=== PATIENT | male | born 1950 | race Caucasian/White ===

== ENCOUNTER 2018-02-22 10:00 | Day surgery (SDC) | payer MEDICARE, MEDICAID ==
[~2018-02-22] VITALS: Ht 188 cm; Wt 90.4 kg
[~2018-02-22 10:00] MED LIST: ASPI-1265 PO; FENO160T PO; HYT1T PO; LABE200T28 PO; LOSA25TA96 PO; MINO2.5T19 PO
[2018-02-22] MEDS ORDERED: normal saline 1000ml 1,000 ML IV SCH (11:15)
[2018-02-22 11:28] LABS: BASOPHILS % (AUTO) 0.6 % (0-1); EOSINOPHILS # (AUTO) 0.1 X10'3 (0-0.9); EOSINOPHILS % (AUTO) 1.7 % (0-6); LYMPHOCYTES # (AUTO) 1.8 X10'3 (1.1-4.8); LYMPHOCYTES % (AUTO) 25.2 % (21-51); MEAN CORPUSCULAR HEMOGLOBIN 32.6 PG (27.0-31.0); MEAN CORPUSCULAR HGB CONC 34.5 % (33.0-36.5); MEAN CORPUSCULAR VOLUME 94.5 FL (78-98); MEAN PLATELET VOLUME 7.1 FL (7.4-10.4); MONOCYTES # (AUTO) 0.5 X10'3 (0-0.9); MONOCYTES % (AUTO) 7.1 % (2-12); NEUTROPHILS # (AUTO) 4.8 X10'3 (1.8-7.7); NEUTROPHILS % (AUTO) 65.4 % (42-75); PRE OP HEMATOCRIT 32.2 % (42.0-52.0); PRE OP HEMOGLOBIN 11.1 g/dL (14.0-17.9); PRE OP PLATELET COUNT 156 X10'3 (140-440); RED BLOOD COUNT 3.41 X10'6 (4.70-6.10); RED CELL DISTRIBUTION WIDTH 13.2 % (11.5-14.5)
[2018-02-22 11:40] LABS: ALBUMIN 3.7 G/DL (3.4-5.0); ANION GAP 8 (8-16); BLOOD UREA NITROGEN 19 MG/DL (7-18); BUN/CREATININE RATIO 4.2 (5.4-32.0); CALCIUM 8.8 MG/DL (8.5-10.1); CHLORIDE 97 MMOL/L (99-107); CREATININE 4.49 MG/DL (0.60-1.10); GLUCOSE 107 MG/DL (70-104); POTASSIUM 3.3 MMOL/L (3.5-5.1); SODIUM 138 MMOL/L (135-145); TOTAL CARBON DIOXIDE 33.5 MMOL/L (24-32); eGFR 13 ML/MIN
[2018-02-22] MEDS ORDERED: PANT20TA2 PO (12:43)
[2018-02-22] MEDS ORDERED: SEVE800T8 PO (12:43)
[2018-02-22] MEDS ORDERED: SIMV20TA5 PO (12:43)
[2018-02-22] MEDS ORDERED: FA/V1TAB5 PO (12:43)
[2018-02-22] MEDS ORDERED: CINA30TA PO (12:43)
[2018-02-22 12:57] VITALS: BP 129/77
[2018-02-22] MEDS ORDERED: midazolam 2 mg/2 ml injection IV PRN (13:25)
[2018-02-22] MEDS ORDERED: heparin 1,000 UNITS/NS 500ml 500 ML ICATH ONE (13:25)
[2018-02-22] MEDS ORDERED: fentaNYL/PF 50MCG/1 ML 2ML syringe IV PRN (13:25)
[2018-02-22] MEDS ORDERED: fentaNYL/PF 50MCG/1 ML 2ML syringe ONE (13:40)
[2018-02-22] MEDS ORDERED: midazolam 2 mg/2 ml injection ONE (13:40)
[2018-02-22] MEDS ORDERED: heparin 1,000 UNITS/NS 500ml 500 ML ONE (13:41)
[2018-02-22] MEDS ORDERED: LIDOcaine 0.5% (5mg/ml) 50ml vial ONE (13:41)
[2018-02-22] MEDS ORDERED: iohexol 300mg/ml 100ml inj. ONE (13:41)
[2018-02-22 14:39] VITALS: BP 135/74
[2018-02-22 14:45] VITALS: BP 122/75
[2018-02-22 15:00] VITALS: BP 130/66
[2018-02-22 15:15] VITALS: BP 124/66
[2018-02-22 15:30] VITALS: BP 124/72
== END 2018-02-22 15:50 | disposition home or self-care (01) ==
LOC: SSTAY O 10:00
PROVIDERS: ATTEND Radiology Diagnostic Radiology
DX: T82.858A Stenosis of other vascular prosthetic devices, implants and grafts, initial encounter (principal); Y83.2 Surgical operation with anastomosis, bypass or graft as the cause of abnormal reaction of the patient, or of later complication, without mention of misadventure at the time of the procedure; Y92.89 Other specified places as the place of occurrence of the external cause; I12.9 Hypertensive chronic kidney disease with stage 1 through stage 4 chronic kidney disease, or unspecified chronic kidney disease; N18.9 Chronic kidney disease, unspecified; G47.33 Obstructive sleep apnea (adult) (pediatric); N40.0 Benign prostatic hyperplasia without lower urinary tract symptoms; Z90.49 Acquired absence of other specified parts of digestive tract; Z87.09 Personal history of other diseases of the respiratory system; Z99.2 Dependence on renal dialysis; Z98.52 Vasectomy status; Z86.73 Personal history of transient ischemic attack (TIA), and cerebral infarction without residual deficits; Z79.82 Long term (current) use of aspirin; Z79.899 Other long term (current) drug therapy; Z98.890 Other specified postprocedural states; Z82.49 Family history of ischemic heart disease and other diseases of the circulatory system
CPT/HCPCS: 36415; 36901; 80048; 85025; 85610; 99152; 99153; C1769; C1894; J1644; J2001; J2250; J3010; Q9967; A4620